=== PATIENT | female | born 1990 | race Asian ===

== ENCOUNTER 2021-02-24 07:39 | Emergency (ER) | payer OTHER ==
--- NOTE | 2021-02-24 07:48 | EDM.PDOC ---
ED HPI GENERAL MEDICAL PROBLEM - General Chief Complaint: Gastrointestinal Problem Stated Complaint: [id number] FREQUENT VOMITING Time Seen by Provider: 02/24/21 07:48 Source of Information: Reports: Patient, RN, RN Notes Reviewed History Limitations: Reports: No Limitations - History of Present Illness INITIAL COMMENTS - FREE TEXT/NARRATIVE: Patient presents with complaints of frequent vomiting since Tuesday; reports she was able to keep food down until Tuesday and it's just been getting worse. She denies other ill symptoms and no abdominal pain. She has been taking Omepra zole daily but it has not been helping. Pt admits that she could be . . Denies any past surgical Hx. Onset: Gradual Duration: Day(s): (3), Constant Location: Reports: Abdomen Quality: Reports: Other (Denies pain) Severity: Moderate Improves with: Reports: None Worsens with: Reports: Eating Associated Symptoms: Reports: No Other Symptoms - Related Data Allergies Allergy/AdvReac Type Severity Reaction Status Date / Time No Known Allergies Allergy Verified 02/24/21 08:38 Home Meds: Home Meds . [No Known Home Meds] 02/24/21 [History] Past Medical History - Past Health History Medical/Surgical History: Denies Medical/Surgical History : 0 Para: 0 Social & Family History - Family History Family Medical History: No Pertinent Family History - Tobacco Use Tobacco Use Status *Q: Never Tobacco User - Living Situation & Occupation Living situation: Reports: , with Spouse Occupation: Employed ED ROS GENERAL - Review of Systems Review Of Systems: Comprehensive ROS is negative, except as noted in HPI. ED EXAM, GI/ABD - Physical Exam Exam: See Below Exam Limited By: No Limitations General Appearance: Alert, WD/WN, No Apparent Distress Eyes: Bilateral: Normal Appearance Throat/Mouth: Normal Inspection, Normal Lips, Normal Voice, No Airway Compromise Head: Atraumatic, Normocephalic Neck: Normal Inspection Respiratory/Chest: No Respiratory Distress, Lungs Clear, Normal Breath Sounds, No Accessory Muscle Use, Chest Non-Tender Cardiovascular: Regular Rate, Rhythm, No Murmur GI/Abdominal Exam: Normal Bowel Sounds, Soft, Non-Tender, No Organomegaly, No Distention, No Abnormal Bruit, No Mass, Pelvis Stable (Female) Exam: Deferred Rectal (Female) Exam: Deferred Back Exam: Normal Inspection Neurological: Alert, Oriented, No Motor/Sensory Deficits Psychiatric: Normal Mood Skin Exam: Warm, Dry, Intact, Normal Color, No Rash Course - Vital Signs Last Recorded V/S: Last Vital Signs Temp 97.1 F 02/24/21 07:48 Pulse 88 02/24/21 07:48 Resp 18 02/24/21 07:48 BP 96/65 02/24/21 07:48 Pulse Ox 100 02/24/21 07:48 - Orders/Labs/Meds Orders: Active Orders 24 hr Category Date Time Status HCG QUANTITATIVE [CHEM] Stat Lab 02/24/21 08:38 Received Labs: Laboratory Tests 02/24/21 02/24/21 Range/Units 07:45 07:45 Urine Color Dark yellow (YELLOW) Urine Appearance Clear (CLEAR) Urine pH 7.0 (5.0-9.0) Ur Specific [place] >= 1.030 (1.005-1.030) Urine Protein 30 H (NEGATIVE) Urine Glucose (UA) Negative (NEGATIVE) Urine Ketones 15 H (NEGATIVE) Urine Occult Blood Negative (NEGATIVE) Urine Nitrite Negative (NEGATIVE) Urine Bilirubin Negative (NEGATIVE) Urine Urobilinogen 2.0 H (0.2-1.0) mg/dL Ur Leukocyte Esterase Negative (NEGATIVE) Urine RBC Not seen /HPF Urine WBC 0-5 (0-5/HPF) /HPF Ur Epithelial Cells Moderate H (NOT SEEN) /HPF Urine Bacteria Rare (0-FEW/HPF) /HPF Urine Mucus Many H (NOT SEEN) /LPF Urine HCG, Qual Positive Meds: Medications Discontinued Medications Generic Name Dose Route Start Last Admin Trade Name Freq PRN Reason Stop Dose Admin Ondansetron HCl 4 mg 02/24/21 07:49 02/24/21 07:56 Ondansetron 4 Mg Tab.Dis PO 02/24/21 07:50 4 mg ONETIME ONE Administration Departure - Departure Time of Disposition: 08:55 Disposition: Home, Self-Care 01 Condition: Good Clinical Impression: Morning sickness Qualifiers: Weeks of gestation: unspecified Qualified Code(s): Z34.90 - Encounter for supervision of normal , unspecified, unspecified trimester - Discharge Information *PRESCRIPTION DRUG MONITORING PROGRAM REVIEWED*: Not Applicable *COPY OF PRESCRIPTION DRUG MONITORING REPORT IN PATIENT ABHILASH: Not Applicable Instructions: Care, Morning Sickness Forms: ED Department Discharge Additional Instructions: Rx: Reglan (Metoclopramide) 10mg Rx: Vitamins Call [phone] to schedule an appointment to establish care. Sepsis Event Note (ED) - Focused Exam Vital Signs: Vital Signs Temp Pulse Resp BP Pulse Ox 02/24/21 07:48 97.1 F 88 18 96/65 100 - My Orders Last 24 Hours: My Active Orders 02/24/21 08:38 HCG QUANTITATIVE [CHEM] Stat - Assessment/Plan Last 24 Hours: My Active Orders 02/24/21 08:38 HCG QUANTITATIVE [CHEM] Stat
[2021-02-24] MEDS ORDERED: Ondansetron 4 MG Tab.DIS PO ONE (07:49)
== END 2021-02-24 09:06 | disposition home or self-care (01) ==
LOC: DL.ED 07:39
DX: O21.9 Vomiting of pregnancy, unspecified (principal)
CPT/HCPCS: 36415; 81001; 81025; 84702; 99284; A9270-GY

== ENCOUNTER 2021-10-14 00:09 | Observation (INO) | payer BC, OTHER ==
[2021-10-14] MEDS ORDERED: Nalbuphine 10 MG/1 ML Vial IM PRN (00:51)
[2021-10-14] MEDS ORDERED: Lactated Ringers 1,000 ML IV ONE (00:51)
[2021-10-14] MEDS ORDERED: Ondansetron 4 MG/2 ML SDV IVPUSH PRN (00:51)
[2021-10-14] MEDS: Lactated Ringers 1,000 ML IV SCH ×2 (01:46→08:54)
[2021-10-14] MEDS ORDERED: Ondansetron 4 MG/2 ML SDV IVPUSH ONE (08:07)
== END 2021-10-14 10:47 | disposition home or self-care (01) ==
LOC: DL.OB 00:09 → UNDOADMOB 00:09
PROVIDERS: ADMIT Family Medicine; ATTEND Family Medicine
DX: O21.9 Vomiting of pregnancy, unspecified (principal); Z3A.39 39 weeks gestation of pregnancy
CPT/HCPCS: 59025; 96372; 96374; 96376; G0378; J2300; J2405; J7120

== ENCOUNTER 2021-10-15 03:19 | Inpatient (IN) | payer BC, OTHER ==
[~2021-10-15 03:19] MED LIST: Ondansetron 4 MG/2 ML SDV IV ONE; Oxytocin/Normal Saline 30 UNIT/500 ML BAG IV SCH
[2021-10-15] MEDS ORDERED: Misoprostol 400 MCG (4 X 100 MCG TAB) RECTAL PRN (03:24)
[2021-10-15] MEDS ORDERED: Benzocaine/Menthol 20%-0.5% Spray 78 GM Cannister TOP PRN (03:24)
[2021-10-15] MEDS ORDERED: Carboprost Tromethamine 250 MCG/1 ML Amp IM PRN (03:24)
[2021-10-15] MEDS ORDERED: Tranexamic Acid 1,000 MG in Sodium Chloride 0.9% 100 ML IV PRN (03:24)
[2021-10-15] MEDS ORDERED: Sodium Chloride 0.9% 10 ML Syringe FLUSH PRN (03:24)
[2021-10-15] MEDS ORDERED: Oxytocin 10 Units/1 ML SDV IM PRN (03:24)
[2021-10-15] MEDS ORDERED: Methylergonovine 0.2 MG Tab PO PRN (03:24)
[2021-10-15] MEDS ORDERED: Acetaminophen 325 MG Tab PO PRN (03:24)
[2021-10-15] MEDS ORDERED: Simethicone 80 MG Tab.Chew PO PRN (03:24)
[2021-10-15] MEDS: Lactated Ringers 1,000 ML IV SCH ×2 (03:40→04:43)
[2021-10-15] MEDS: Ibuprofen 800 MG Tab PO PRN ×2 (05:55→17:45)
[2021-10-15] MEDS ORDERED: Witch Hazel Medicated Pads 100/Jar TOP PRN (06:40)
[2021-10-15] MEDS: Prenatal Multivitamin with Calcium/Folic Acid/Iron Tab PO SCH ×2 (09:21→09:29)
[2021-10-15] MEDS: Docusate Sodium 100 MG Cap PO PRN (09:21)
[2021-10-15] MEDS ORDERED: fentaNYL 100 MCG/2 ML SDV ITHECAL ONE (12:20)
[2021-10-16] MEDS: Ibuprofen 800 MG Tab PO PRN ×3 (04:36→21:22)
[2021-10-16] MEDS: Prenatal Multivitamin with Calcium/Folic Acid/Iron Tab PO SCH (09:10)
[2021-10-16] MEDS: Docusate Sodium 100 MG Cap PO PRN (09:10)
[2021-10-17] MEDS: Docusate Sodium 100 MG Cap PO PRN (08:00)
[2021-10-17] MEDS: Prenatal Multivitamin with Calcium/Folic Acid/Iron Tab PO SCH (08:00)
[2021-10-17] MEDS: Ibuprofen 800 MG Tab PO PRN (08:00)
== END 2021-10-17 11:58 | disposition home or self-care (01) | DRG 560 ==
LOC: DL.OB 03:19
PROVIDERS: ADMIT Family Medicine; ATTEND Family Medicine
PROC: 10E0XZZ Delivery of Products of Conception, External Approach (ICD-10-PCS; principal; 2021-10-15)
PROC: 10907ZC Drainage of Amniotic Fluid, Therapeutic from Products of Conception, Via Natural or Artificial Opening (ICD-10-PCS; 2021-10-15)
PROC: 0KQM0ZZ Repair Perineum Muscle, Open Approach (ICD-10-PCS; 2021-10-15)
DX: O99.02 Anemia complicating childbirth (principal); Z37.0 Single live birth; D64.9 Anemia, unspecified; Z20.822 Contact with and (suspected) exposure to COVID-19; Z3A.39 39 weeks gestation of pregnancy; O70.1 Second degree perineal laceration during delivery
CPT/HCPCS: 36415; 59409; 85027; A9270-GY; J2405; J2590; J3010; J7120; U0002

== ENCOUNTER 2021-11-19 21:36 | Emergency (ER) | payer SELFPAY | END 2021-11-19 22:00 | disposition left against medical advice (07) | LOC: DL.ED 21:36 | DX: R10.9 Unspecified abdominal pain (principal); Z53.21 Procedure and treatment not carried out due to patient leaving prior to being seen by health care provider ==

== ENCOUNTER 2021-12-03 20:20 | Emergency (ER) | payer BC ==
[2021-12-03] MEDS ORDERED: Ondansetron 4 MG Tab.DIS PO ONE (20:21)
[2021-12-03] MEDS ORDERED: Ondansetron 4 MG/2 ML SDV IVPUSH ONE (20:36)
[2021-12-03] MEDS ORDERED: HYDROmorphone 1 MG/ML Syringe IVPUSH ONE (20:36)
[2021-12-03] MEDS ORDERED: Sodium Chloride 0.9% 1,000 ML IV ONE (20:36)
[2021-12-03 21:08] LABS: ANION GAP 12.8 mEq/L (7-13); CHLORIDE,CL 104 mmol/L (98-107); SODIUM,NA 139 mmol/L (136-145)
[2021-12-03] MEDS ORDERED: Iopamidol 612 MG/ML 100 ML Bottle IVPUSH ONE (21:12)
[2021-12-03] MEDS ORDERED: Ondansetron 4 MG Tab.DIS ONE (23:07)
== END 2021-12-03 22:50 | disposition home or self-care (01) ==
LOC: DL.ED 20:20
DX: K80.20 Calculus of gallbladder without cholecystitis without obstruction (principal)
CPT/HCPCS: 36415; 74177; 80053; 82150; 83690; 84703; 85025; 96361; 96374; 96375; 99284; A9270; J1170; J2405; J7030; Q9967